=== PATIENT | male | born 1990 | race Caucasian/White ===

== ENCOUNTER 2017-09-03 17:10 | Emergency (ER) | payer OTHER ==
[~2017-09-03] VITALS: Ht 182.9 cm; Wt 77.1 kg
[2017-09-03 17:04] VITALS: TEMP 99.2
[2017-09-03 18:15] VITALS: BP 147/90
== END 2017-09-03 18:20 ==
LOC: ED 17:10
DX: K04.7 Periapical abscess without sinus (principal)
CPT/HCPCS: 96372; 99282; J1885

== ENCOUNTER 2022-01-08 13:05 | Observation (INO) | payer OTHER ==
[2022-01-08] VITALS (8 sets, daily range): BP systolic 105–148; BP diastolic 41–92; TEMP 97.6–98.4; Ht 182.9 cm; Wt 64.4 kg
[~2022-01-08] VITALS: Ht 182.9 cm; Wt 64.4 kg
[2022-01-08 14:00] LABS: PLATELET COUNT 299 K/uL (142-355)
[2022-01-08 14:08] LABS: POTASSIUM 3.2 mmol/L (3.6-5.2)
[2022-01-09] VITALS: BP 127/76; TEMP 101
[2022-01-09 01:25] VITALS: TEMP 100.5
[2022-01-09 04:00] VITALS: BP 128/70; TEMP 99.6
[2022-01-09 05:26] LABS: PLATELET COUNT 216 K/uL (142-355)
[2022-01-09 05:53] LABS: POTASSIUM 3.3 mmol/L (3.6-5.2)
[2022-01-09 07:21] VITALS: BP 116/58; TEMP 98.9
== END 2022-01-09 07:40 | disposition left against medical advice (07) ==
LOC: ED 13:05 → MED/SURG 17:05
PROVIDERS: Emergency Medicine; ADMIT Internal Medicine; ATTEND Internal Medicine
DX: F11.13 Opioid abuse with withdrawal (principal); N17.8 Other acute kidney failure; E86.0 Dehydration; E87.6 Hypokalemia; R73.9 Hyperglycemia, unspecified; R11.2 Nausea with vomiting, unspecified
CPT/HCPCS: 80053; 80320; 80329; 83735; 85027; 87635; 96360; 96361; 96365; 96375; 99220; 99284; G0378; J2060; J2405; U0003